=== PATIENT | male | born 1955 | race Caucasian/White ===

== ENCOUNTER 2023-08-21 09:22 | Inpatient (IN) | payer MEDICARE, OTHER, SELFPAY ==
[2023-08-16 13:29] VITALS: BMI 22.0
[2023-08-20] VITALS (19 sets, daily range): BP systolic 109–161; BP diastolic 68–91; BMI 22.0
[2023-08-20] MEDS: NORMOSOL-R 1000 IV ×2 (08:33→11:17)
[2023-08-20 08:55] LABS: Urine Albumin Trace (Neg - Trace); Urine Bilirubin Negative (Negative); Urine Character Clear (Clear); Urine Color Yellow; Urine Glucose Negative (Negative); Urine Ketone Negative (Negative); Urine Leukocyte 2+ (Negative); Urine Nitrite Negative (Negative); Urine Occult Blood Negative (Negative); Urine Specific Gravity 1.015 (<1.030); Urine Urobilinogen Negative (Neg - 1+)
[2023-08-20 09:27] LABS: Urine Mucus Few
[2023-08-20 09:29] LABS: Urine Amorphous Seen; Urine Bacteria Few (Negative); Urine Red Blood Cell 0-2 /HPF (0-2); Urine Squamous Cell 0-2 /LPF (Few); Urine White Cell 30-40 /HPF (0-5)
--- NOTE | 2023-08-20 10:08 | W.PN.URO.CBU ---
Today's Communication / Plan
-
cgbi hand irrigate prn
Assessment / Plan
-
stable post op turp but a previois turp with hamtior a will run cbi and check hgb
Diagnosis
-
Date of Service: August 20, 2023
-
Patient Diagnosis:
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
Post Op Day:
Subjective
-
pos top
Objective
-
Vital Signs
Temp Pulse Resp BP Pulse Ox
98.3 F 77 16 161/91 100
08/20/23 08:06 08/20/23 08:06 08/20/23 08:06 08/20/23 08:06 08/20/23 08:06
Review of Systems
-
: Bleeding
Physical Exam
-
General - well developed, well nourished, no acute distress
Chest - clear bilaterally
Abdomen - soft, non-tender, positive bowel sounds, no CVAT, no incisional pain or distention
Genitalia - normal
Rectal - normal
Skin - warm & dry with no rash
Neuro - AOx3, no motor deficits
Extremities - no clubbing, no cyanosis, no edema
Incision - clean, dry
Dressing - clean, dry, intact
Counseling
-
cbi hand irrigate prn
Care Review
Data Reviewed
Discussed with: Nursing
[2023-08-20] MEDS: DEMEROL 12.5 MG IV (11:01)
[2023-08-20] MEDS: DETROL LA 4 MG PO (11:15)
[2023-08-20 11:16] LABS: Hematocrit 39.2 % (39.0-52.0); Hemoglobin 13.4 g/dL (13.0-18.0)
[2023-08-20] MEDS: AUGMENTIN 875 MG/125 MG 1 TABLET PO ×2 (13:37→19:38)
--- NOTE | 2023-08-20 14:26 | PTCARENOTE ---
Pt arrived to [facility] from PACU s/p TURP. Pt has 3 way Haddad with CBI, stat lock in place. Haddad draining punch colored urine. Pt states no pain at this time. Pt oriented to call finney and room, bed locked and in lowest position, call finney within
reach.
[2023-08-20] MEDS: LIPITOR 10 MG PO (19:38)
[2023-08-20] MEDS: FLOMAX 0.400000000000000022 MG PO (23:58)
[2023-08-21 03:44] VITALS: BP 141/82
[2023-08-21 05:43] LABS: Hematocrit 38.8 % (39.0-52.0); Hemoglobin 13.1 g/dL (13.0-18.0)
[2023-08-21 07:57] VITALS: BP 120/71
[2023-08-21] MEDS: COZAAR 50 MG PO (08:39)
[2023-08-21] MEDS: AUGMENTIN 875 MG/125 MG 1 TABLET PO ×2 (09:17→20:22)
--- NOTE | 2023-08-21 09:19 | W.PN.URO.CBU ---
Today's Communication / Plan
-
try and wean off cbi and if stable remove combs in am
Assessment / Plan
-
stable post op turp but mild hematuria will continuw cbi but try and d/c today
Diagnosis
-
Date of Service: August 21, 2023
-
Patient Diagnosis:
Post Op Day:
Patient Diagnosis:
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
Post Op Day:
Subjective
-
some hematuria some spasms n feer chills
Objective
-
Vital Signs
Temp Pulse Resp BP Pulse Ox
99.3 F 89 17 120/71 97
08/21/23 07:57 08/21/23 08:39 08/21/23 07:57 08/21/23 08:39 08/21/23 07:57
Intake and Output
08/20/23 08/21/23 08/22/23
06:59 06:59 06:59
Intake Total 600 / 600
Output Total 2400 / 2400
Balance -1800 / -1800
Intake:
Oral fluids 200 / 200
IV fluids (Total) 400 / 400
Normosol 400 / 400
Output:
True Urine Output from CBI 2400 / 2400
Laboratory Results
08/21/23 05:32
Review of Systems
-
: Difficulty Voiding
Physical Exam
-
General - well developed, well nourished, no acute distress
Chest - clear bilaterally
Abdomen - soft, non-tender, positive bowel sounds, no CVAT, no incisional pain or distention
Genitalia - normal
Rectal - normal
Skin - warm & dry with no rash
Neuro - AOx3, no motor deficits
Extremities - no clubbing, no cyanosis, no edema
Incision - clean, dry
Dressing - clean, dry, intact
Counseling
-
taj and wean of cbi and remove combs by am
Care Review
Data Reviewed
Discussed with: Nursing
[2023-08-21 11:26] VITALS: BP 135/72
[2023-08-21 15:15] VITALS: BP 133/65
--- NOTE | 2023-08-21 16:07 | CM ---
Reviewed the chart notes and spoke with the patient at the bedside. The patient resides with his spouse in a two story home with two steps to enter. The patient reports no DME/VN/SNF in the past. The patient confirmed his pharmacy of choice is
the [facility] [address]. The patient anticipates being discharged to home when medically stable. Possible discharge tomorrow. CM continues to be available to patient/family and is monitoring medical plan for needs at discharge.
Plan: Discharge to home when medically stable. No needs anticipated at this time.
[2023-08-21 20:18] VITALS: BP 137/77
[2023-08-21] MEDS: LIPITOR PO (20:22)
[2023-08-21] MEDS: LIPITOR 10 MG PO (22:03)
[2023-08-21] MEDS: FLOMAX 0.400000000000000022 MG PO (22:03)
[2023-08-21 23:00] VITALS: BP 128/77
--- NOTE | 2023-08-22 06:33 | PTCARENOTE ---
pt combs was removed. urine was punch color. no c/o pain, no blood clots, or obstruction noted. pt DTV
[2023-08-22 07:50] VITALS: BP 122/75
[2023-08-22] MEDS: COZAAR 50 MG PO (08:24)
[2023-08-22] MEDS: AUGMENTIN 875 MG/125 MG 1 TABLET PO (08:24)
--- NOTE | 2023-08-22 12:00 | CM ---
Reviewed the chart notes. The patient is being discharged to home today with no needs. Patient's spouse providing transportation.
--- NOTE | 2023-08-22 12:11 | PTCARENOTE ---
Patient voided 125 ml of bloody urine around 1030 while having a BM. Per order patient ok to go home. Discharge instructions given. Denied questions. Patient discharged around 1145.
== END 2023-08-22 11:47 | disposition home or self-care (01) | DRG 714 ==
LOC: 2 SOUTH 09:22
PROVIDERS: ADMITTING PHYSICIAN Specialist
PROC: 0VT08ZZ Resection of Prostate, Via Natural or Artificial Opening Endoscopic (ICD-10-PCS; 2023-08-20)
DX: N40.1 Benign prostatic hyperplasia with lower urinary tract symptoms (principal); R33.8 Other retention of urine; N32.89 Other specified disorders of bladder
CPT/HCPCS: 88305; 81003; 81015; 85014; 85018; 87086; J1580

== ENCOUNTER 2024-05-27 01:11 | Emergency (ER) | payer MEDICARE, OTHER, SELFPAY ==
[2024-05-27 01:14] VITALS: BP 149/89
[2024-05-27 02:08] VITALS: BMI 23.8
--- NOTE | 2024-05-27 02:39 | ED.GENMED ---
History of Present Illness
General
Chief Complaint: Fall
Source: patient and family
Exam Limitations: none
Time Seen by Provider: 05/27/24 02:13
History of Present Illness
History of Present Illness:
This a pleasant 69-year-old male presents to the emergency department with left-sided head injury. He did not lose consciousness. He was coming out of the shower and he hit the left side of his head. He is here for sutures. Last tetanus shot is
unknown. Denies any other injury.
Past History
Past History
ED Past Medical History: Hypercholesterolemia
ED Past Surgical History: Urological (TURP 1999 and 2014)
Social History
Tobacco: Non-smoker
Alcohol: None
Personal:
Living: with family
Employment: Retired
Review of Systems
Review of Systems
Allergies reviewed?: Yes
All Other Systems: ROS reviewed and negative except as documented in HPI and ROS
Skin: Reports other (Laceration)
Hematologic/Lymphatic: Reports bleeding
Phy Exam
General Physical Exam
General Presentation: well appearing and no apparent distress
General Skin: warm and dry
General Habitus: normal
General Mental: alert
General Hydration: appears well hydrated
ENT Exam
ENT Exam: EOMI, pharynx normal, neck supple, normocephalic and other (No septal hematoma. Dentition intact.)
Eye Exam
Eye Exam: PERRL, cornea clear and conjunctiva normal
Cardiovascular Exam
Cardiovascular Exam: regular rate/rhythm, no edema, no murmur and normal peripheral pulses
Pulmonary Exam
Pulmonary Exam: lungs clear, no respiratory distress, no rales, no crackles, no rhonchi, no stridor, no wheezing and no cough
Gastrointestinal Exam
Gastrointestinal Exam: normal bowel sounds, non tender, soft, no organomegaly, no pulsatile mass and non distended
Neurological Exam
Neurological Exam: alert, oriented x3, no motor deficits and speech normal
Musculoskeletal Exam
Musculoskeletal Exam: full ROM and no edema
Skin Exam
Skin Exam: normal color, warm/dry, no rash, no petechia and laceration
Psychiatric Exam
Psychiatric Exam: normal mood/affect
Course
Vital Signs
Initial and Last Documented VS:
Initial Vital Signs
Temp Pulse Resp BP Pulse Ox
97.7 F 82 18 149/89 97
05/27/24 01:14 05/27/24 01:14 05/27/24 01:14 05/27/24 01:14 05/27/24 01:14
Last Documented Vital Signs
Temp Pulse Resp BP Pulse Ox
97.7 F 82 18 149/89 97
05/27/24 01:14 05/27/24 01:14 05/27/24 01:14 05/27/24 01:14 05/27/24 01:14
Procedures
Laceration Closure
Left Forehead:
Status of Wound: clean
Size of Wound in cm: 3
Description of Wound Edges: sharp and flap-well vascularized
Preparation: cleaned with saline
Anesthesia: 1% Lidocaine
Revision/Debridement: routine- no revision
Type of Closure: single layer closure
Skin Closure Material: 5-0 nylon
Number of sutures: 5
*Critical Care Note
Total Time (30-74mins, 75-104mins- exclusive of procedures): Not Applicable
ED Attending Note
-
Portions of this chart may have been created with voice recognition software.� Occasional wrong word or��sound alike� substitutions may have occurred due to the inherent limitations of voice recognition software.
Discharge Plan
Departure
Patient Disposition: Home (Routine Discharge)
Date of Disposition: 05/27/24
Time of Disposition: 02:42
Patient with high blood pressure during this ER visit?: Yes
Discharge Problem:
Forehead laceration
Instructions: Wound Care (DC), Laceration Repair With Stitches (DC), Tdap vaccine, BLOOD PRESSURE
Prescriptions:
No Action
atorvastatin 10 MG tablet
10 mg PO QPM
tamsulosin 0.4 MG capsule
0.4 mg PO HS
ibuprofen 600 mg tablet
600 mg PO Q8H PRN (Reason: pain) Qty: 30 0RF
losartan 50 mg Tablet
50 mg PO DAILY
acetaminophen 325 mg Tablet
650 mg PO Q6H PRN (Reason: pain)
amoxicillin-pot clavulanate 875-125 mg Tablet
1 tab PO .PRE OP
Referrals:
[facility] [Provider Group]
[facility] [Outside]
UNKNOWN - PT DOES,NOT KNOW [Family Provider] -
Activity Restrictions/Additional Instructions:
Sutures can be removed in 5 to 7 days.
It was a pleasure meeting you and taking part in your care. We hope for your continued healing and wellness.
Please read discharge instructions in their entirety. However, they are for general education and may not describe your exact diagnosis at discharge. Information on your ER visit and medical conditions were discussed with you along with appropriate
follow up information...
If indicated, please take your medications as instructed and indicated on discharge paperwork.
Please schedule a follow up appointment as directed. Call to schedule an appointment
Please return to the emergency department with ANY change in, persisting, or worsening of symptoms. If any of your symptoms do not improve, or persist, or become more severe within 6-12 hours, please return to the emergency department for further
care.
Please return to the emergency department if you develop a headache, neck pain/stiffness, fever greater than 100.4F, chest pain, shortness of breath, persistent nausea, vomiting, slurred speech, difficulty walking, numbness/tingling, weakness, signs
of infection or any other symptoms that are worrisome to you.
If you have any questions or concerns please do not hesitate to call the Hospital at or E-mail me directly at [email or web address]
Interventions
Interventions:
*Risk Screen - Suicide Last Done: 05/27/24 02:08
*General Assessment Last Done: 05/27/24 02:08
*Neglect/Abuse Screening Last Done: 05/27/24 02:08
*ED COVID-19 Vaccine History Last Done: 05/27/24 01:24
ED-Musculoskeletal Assessment Last Done: 05/27/24 02:10
ED- Neurological Assessment Last Done: 05/27/24 02:08
ED-Skin Assessment Last Done: 05/27/24 02:08
Discharge Date and Time
Print Language: [id number]
[2024-05-27] MEDS: ADACEL 0.5 ML IM (02:55)
== END 2024-05-27 03:05 | disposition home or self-care (01) ==
LOC: EMR 01:11
PROVIDERS: EMERGENCY PHYSICIAN Student in an Organized Health Care Education/Training Program
DX: S01.81XA Laceration without foreign body of other part of head, initial encounter (principal); W22.09XA Striking against other stationary object, initial encounter; Z23 Encounter for immunization; R03.0 Elevated blood-pressure reading, without diagnosis of hypertension
CPT/HCPCS: 99283; 12013; 90471; 90715

== ENCOUNTER → 2025-05-13 12:19 | Outpatient (REF) | payer MEDICARE, OTHER, SELFPAY | LOC: HWRAD 12:19 | PROVIDERS: ATTENDING PHYSICIAN Nurse Practitioner Family | DX: R59.1 Generalized enlarged lymph nodes (principal) | CPT/HCPCS: 76536 ==